=== PATIENT | male | born 1970 | race Caucasian/White ===

== ENCOUNTER 2016-12-03 13:49 | Inpatient (IN) | payer BC ==
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
[2016-12-03 14:31] LABS: % IMMATURE GRANULYOCYTES 0.4 % (0.0-1.1); ABSOLUTE IMMATURE GRANULOCYTES 0.05 10^3/uL (0.00-0.10); ADD DIFF? NO; ADD MORPH? NO; ADD SCAN? NO; ATYPICAL LYMPHOCYTE FLAG 0 (0-99); FRAGMENT RBC FLAG 0 (0-99); HEMATOCRIT 55.1 % (40.0-51.0); HEMOGLOBIN 18.4 g/dL (13.7-17.5); LEFT SHIFT FLG 0 (0-99); LIPEMIA HEMOLYSIS FLAG 80 (0-99); MEAN CELL HEMOGLOBIN 30.8 pg (27.9-34.1); MEAN CELL HEMOGLOBIN CONCENTR. 33.4 g/dL (32.4-36.7); MEAN CELL VOLUME 92.3 fL (81.5-99.8); MEAN PLATELET VOLUME 10.4 fL (8.7-11.7); PLATELET CLUMPS FLAG 0 (0-99); PLATELET COUNT 301 10^3/uL (150-400); RED BLOOD CELL COUNT 5.97 10^6/uL (4.40-6.38); RED CELL DISTRIBUTION WIDTH 14.1 % (11.5-15.2)
[2016-12-03 14:46] LABS: ANION GAP 13 mEq/L (8-16); CALCIUM 9.6 mg/dL (8.5-10.4); CARBON DIOXIDE 21 mEq/l (22-31); CHLORIDE 101 mEq/L (97-110); CREATININE 0.7 mg/dL (0.7-1.3); GLOMERULAR FILTRATION RATE > 60; GLUCOSE 88 mg/dL (70-100); POTASSIUM 4.6 mEq/L (3.5-5.2); SODIUM 135 mEq/L (134-144)
[2016-12-03 14:57] LABS: ALBUMIN 3.9 g/dL (3.5-5.0); BILIRUBIN-CONJUGATED 0.5 mg/dL (0.0-0.5); BILIRUBIN-UNCONJUGATED 0.5 mg/dL (0.0-1.1); TOTAL PROTEIN 7.5 g/dL (6.3-8.2)
[2016-12-03 15:13] LABS: INR 1.02 (0.83-1.16); PROTIME(PATIENT) 13.3 SEC (12.0-15.0)
[2016-12-03 15:47] LABS: APTT 29.6 SEC (23.0-38.0)
[2016-12-03] MEDS ORDERED: VANCOMYCIN HCL/NORMAL SALINE 250 ML IV ONE (16:36)
[2016-12-03] MEDS ORDERED: ONDANSETRON DISINTEGRATING 4 MG TAB PO PRN (17:51)
[2016-12-03] MEDS ORDERED: ONDANSETRON 4 MG/2 ML VIAL IVP PRN (17:51)
[2016-12-03] MEDS ORDERED: ACETAMINOPHEN 325 MG TAB PO PRN (17:51)
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
[2016-12-03] MEDS: NS IV SCH (20:01)
[2016-12-03] MEDS: DAPTOMYCIN IV SCH (20:01)
[2016-12-03] MEDS: oxyCODONE IR 5 MG TAB PO PRN (20:11)
[2016-12-04] MEDS: oxyCODONE IR 5 MG TAB PO PRN ×5 (01:28→23:14)
[2016-12-04 05:14] LABS: HEMATOCRIT 52.6 % (40.0-51.0); HEMOGLOBIN 17.3 g/dL (13.7-17.5); MEAN CELL HEMOGLOBIN 31.2 pg (27.9-34.1); MEAN CELL HEMOGLOBIN CONCENTR. 32.9 g/dL (32.4-36.7); MEAN CELL VOLUME 94.9 fL (81.5-99.8); RED BLOOD CELL COUNT 5.54 10^6/uL (4.40-6.38); RED CELL DISTRIBUTION WIDTH 14.3 % (11.5-15.2)
[2016-12-04 05:37] LABS: ALANINE AMINOTRANSFERASE 27 IU/L (21-72); ALBUMIN 2.9 g/dL (3.5-5.0); ALKALINE PHOSPHATASE 82 IU/L (38-126); ANION GAP 8 mEq/L (8-16); ASPARTATE AMINOTRANSFERASE 21 IU/L (17-59); BILIRUBIN,TOTAL 0.6 mg/dL (0.1-1.4); CALCIUM 8.8 mg/dL (8.5-10.4); CARBON DIOXIDE 25 mEq/l (22-31); CHLORIDE 100 mEq/L (97-110); CREATININE 0.7 mg/dL (0.7-1.3); GLOMERULAR FILTRATION RATE > 60; GLUCOSE 82 mg/dL (70-100); POTASSIUM 4.7 mEq/L (3.5-5.2); SODIUM 133 mEq/L (134-144); TOTAL PROTEIN 6.1 g/dL (6.3-8.2)
[2016-12-04] MEDS: DAPTOMYCIN IV SCH (07:59)
[2016-12-04] MEDS: NS IV SCH (07:59)
[2016-12-04] MEDS ORDERED: ENOXAPARIN 40 MG/0.4 ML SYR SC SCH (09:00)
--- NOTE | 2016-12-04 09:56 | WOCRNPDOC ---
WOCRN Advanced Assessment Note - Skin Integrity Problem, Advanced Assess Left Calf Dressing Type: Open to Air Exudate Amount: Minimal Exudate Characteristic(s): Serosanguinous Neida Wound Tissue: Erythema, Hot, Hemosiderin Staining, Xerotic Wound Bed Color: [place] Life Wound Bed Constitution: Smooth Tissue, Scab Wound Edges: Attached Peripheral Edema Location & Description: 2+ BLE Skin Integrity Problem Comment: Acute cellulitis of the left lower leg with swelling and skin breakdown. Bilateral legs with mild hemosiderin staining. Wounds are fissure-like along back of leg and as edema reduces they will likely close. Wound care will round again next week. Cece WADDELL in room.
--- NOTE | 2016-12-04 13:24 | HOSPPROG ---
Hospitalist Progress Note Assessment/Plan: Assessment: 46-year-old male presents with acute cellulitis in the setting of significant bilateral lower extremity edema Plan: 1. Cellulitis. Purulent, located on the posterior aspect of the left lower extremity, remains clinically on resolved from day prior, requiring ongoing IV antibiotics -Dr. Kwan discussed with Dr. Sarah last night, daptomycin was recommended given the patient's weight -continue daptomycin at this time -consulted with Infectious Disease, appreciate recommendations regarding type of therapy, duration of therapy, establishing with wound care as an outpatient -wound care consultation appreciated, currently open to air -continue to monitor CBC 2. Lower extremity edema. Chronic, no evidence of DVT on ultrasound, give IV Lasix and plan to transition to oral Lasix at discharge, to facilitate wound healing 3. Hyponatremia. Acute, most likely secondary to hypoperfusion in the setting of infection, continue to monitor 4. Morbid obesity. Increase patient's risk of worsening morbidity, BMI of 50 Diet. Regular diet Prophylaxis. High risk patient, Lovenox 40 Code. Full Disposition. Anticipated discharge uncertain this time, patient's cellulitis remains clinically on resolved, requiring ongoing reassessments and IV antibiotics. Subjective: ongoing purulence from LLE, no BM Objective: Vital Signs Temp Pulse Resp BP Pulse Ox 36.6 C 83 16 131/81 H 93 12/04/16 12:00 12/04/16 12:00 12/04/16 12:00 12/04/16 12:00 12/04/16 12:00 Microbiology 12/03/16 19:00 Gram Stain - Final Leg - Swab Laboratory Results 12/04/16 04:31 12/04/16 04:31 PT 13.3 SEC (12.0-15.0) 12/03/16 14:20 INR 1.02 (0.83-1.16) 12/03/16 14:20 - Physical Exam Constitutional: no apparent distress, not in pain, obese, No uncomfortable Cardiovascular: regular rate and rhythym, no murmur, rub, or gallop, edema (2+ bilat LE) Respiratory: no respiratory distress, no rales or rhonchi, clear to auscultation Gastrointestinal: normoactive bowel sounds, soft, non-tender abdomen, no palpable masses, distension (moderately) Skin: other (open ulcerations posterior aspect LLE w/ purulence, erythema, no blistering) Neurologic: AAOx3, sensation intact bilaterally, No asterixes (no tremor) Psychiatric: interacting appropriately, not anxious, not encephalopathic, thought process linear ICD10 Worksheet Patient Problems: Problems Problem Status Onset Left leg cellulitis Acute
[2016-12-04] MEDS: FUROSEMIDE 20 MG TAB PO SCH (13:40)
--- NOTE | 2016-12-04 16:40 | ASMTCMCOM ---
CM Note CM Note Notes: Pt is a 46 y/o man admitted w/ left leg celluitis. Pt is obese with a hx of ETOH. Pts last drink is on . CM met w/ pt for dispo planning. Pt will most likely d/c independently w/out any needs. Spoke w/ Sari, RN and pt will have ID consult today. CM available for any changes. Date Signed: 12/04/2016 04:39 PM Electronically Signed By:Nieves Reed
[2016-12-04] MEDS: ENOXAPARIN 40 MG/0.4 ML SYR SC SCH (20:31)
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
[2016-12-05] MEDS: oxyCODONE IR 5 MG TAB PO PRN ×2 (03:51→08:18)
[2016-12-05 05:17] VITALS: RESP 16
[2016-12-05 05:27] LABS: HEMATOCRIT 50.9 % (40.0-51.0); HEMOGLOBIN 17.2 g/dL (13.7-17.5); MEAN CELL HEMOGLOBIN 31.9 pg (27.9-34.1); MEAN CELL HEMOGLOBIN CONCENTR. 33.8 g/dL (32.4-36.7); MEAN CELL VOLUME 94.3 fL (81.5-99.8); RED BLOOD CELL COUNT 5.4 10^6/uL (4.40-6.38); RED CELL DISTRIBUTION WIDTH 14.3 % (11.5-15.2)
[2016-12-05 05:42] LABS: ALANINE AMINOTRANSFERASE 29 IU/L (21-72); ALKALINE PHOSPHATASE 69 IU/L (38-126); ANION GAP 7 mEq/L (8-16); ASPARTATE AMINOTRANSFERASE 18 IU/L (17-59); BILIRUBIN,TOTAL 0.7 mg/dL (0.1-1.4); CARBON DIOXIDE 26 mEq/l (22-31); CHLORIDE 98 mEq/L (97-110); CREATININE 0.7 mg/dL (0.7-1.3); GLOMERULAR FILTRATION RATE > 60; GLUCOSE 91 mg/dL (70-100); POTASSIUM 4.4 mEq/L (3.5-5.2); SODIUM 131 mEq/L (134-144); TOTAL PROTEIN 6.2 g/dL (6.3-8.2)
[2016-12-05 07:33] LABS: COLOR YELLOW; LEUKOCYTE ESTERASE,URINE NEGATIVE (NEGATIVE); NITRITE,URINE NEGATIVE (NEGATIVE)
[2016-12-05 08:06] VITALS: O2SAT 92
[2016-12-05] MEDS: ENOXAPARIN 40 MG/0.4 ML SYR SC SCH (08:19)
[2016-12-05] MEDS: FUROSEMIDE 20 MG TAB PO SCH (08:19)
[2016-12-05] MEDS ORDERED: NS IV SCH (09:00)
[2016-12-05] MEDS ORDERED: DAPTOMYCIN IV SCH (09:00)
[2016-12-05 11:54] VITALS: BP 127/89; PULSE 75; TEMP 97.8
--- NOTE | 2016-12-05 12:10 | PCMIDPN ---
Assessment/Plan: LLE cellulitis: Wound cultures showed group C/G Streptococcus and MSSA and Citrobacter. Patient improved clinically on coverage of strep and MSSA alone. Reviewed picture of left lower extremity which shows improvement. Patient desires discharge today --dc on Keflex 500mg QID --Continue elevation as much as possible --Follow-up in wound care. Patient to be called with follow-up appointment patient seen with Suly Chi NP Subjective: patient feeling well wants to go home expresses extreme satisfaction over care he received at [facility] Objective: Vital Signs Temp Pulse Resp BP Pulse Ox 36.6 C 75 16 127/89 H 92 12/05/16 11:53 12/05/16 11:53 12/05/16 11:53 12/05/16 11:53 12/05/16 11:53 Microbiology 12/03/16 19:00 Gram Stain - Final Leg - Swab Laboratory Results 12/05/16 05:14 12/05/16 05:14 12/04/16 12/05/16 12/06/16 05:59 05:59 05:59 Intake Total 1550 450 Output Total 1300 2500 Balance 250 -2050 - Physical Exam General Appearance: alert, no apparent distress Respiratory: No accessory muscle use Extremities: pedal edema, inflammation (Posterior left calf with purplish tinged erythema and skin breakdown, 2+ edema), other (Wrinkling of the lower extremity showing improved edema) Skin: No rash Neuro/Psych: alert, normal mood/affect, oriented x 3 - Time Spent With Patient Time Spent with Patient: greater than 35 minutes (Coordination of care with hospitalists, review of plans at discharge) Time Spent with Patient: Greater than 35 minutes spent on this patients care, greater than 50% of time spent counseling, educating, and coordinating care regarding the above mentioned plan. ICD10 Worksheet Patient Problems: Problems Problem Status Onset Left leg cellulitis Acute
--- NOTE | 2016-12-05 12:14 | HOSPPROG ---
Hospitalist Progress Note Assessment/Plan: Patient is a 38-year-old male with morbid obesity and history of alcohol use who presented the emergency room with left lower extremity swelling for several weeks. Today is my 1st encounter with the patient. Evaluated the patient with Dr. Teresa Francis. * left lower extremity cellulitis/MSSA Treated w Daptomycin Will go home on oral antibiotics * morbid obesity * venous insufficiency with with chronic venous stasis Doppler study was negative * alcohol use and abuse Cessation recommended * hyponatremia Suspect this is related to hypovolemia and alcohol use * plan. DC home with close follow up with Dr. Francis, he would like his hemoglobin A1c and lipid panel checked. This will be added onto his lab so when he sees his primary care provider this will be available Subjective: Robert is feeling well. Ready to be discharged Objective: Vital Signs Temp Pulse Resp BP Pulse Ox 36.6 C 75 16 127/89 H 92 12/05/16 11:53 12/05/16 11:53 12/05/16 11:53 12/05/16 11:53 12/05/16 11:53 Microbiology 12/03/16 19:00 Gram Stain - Final Leg - Swab Laboratory Results 12/05/16 05:14 12/05/16 05:14 12/04/16 12/05/16 12/06/16 05:59 05:59 05:59 Intake Total 1550 450 Output Total 1300 2500 Balance 250 -2050 PT 13.3 SEC (12.0-15.0) 12/03/16 14:20 INR 1.02 (0.83-1.16) 12/03/16 14:20 - Physical Exam Constitutional: not in pain, obese Eyes: PERRL Ears, Nose, Mouth, Throat: hearing normal Respiratory: no respiratory distress Skin: warm, other (Left lower extremity just really dressed with dressing in place. He had pictures from 8 evaluate. Appears to have some redness with chronic venous stasis) Musculoskeletal: generalized weakness Neurologic: AAOx3 Psychiatric: interacting appropriately, not anxious ICD10 Worksheet Patient Problems: Problems Problem Status Onset Left leg cellulitis Acute
--- NOTE | 2016-12-05 13:01 | GDS ---
[f rep st] DISCHARGE SUMMARY DISCHARGE DIAGNOSES: 1. Left lower extremity cellulitis/methicillin susceptible Staphylococcus aureus. 2. Morbid obesity. 3. Venous insufficiency with chronic venous stasis. 4. Alcohol use and abuse. 5. Hyponatremia. CONSULTATIONS: Teresa Francis MD. Briefly, the patient is a 46-year-old male with morbid obesity and alcohol abuse who presented to the emergency room with progressive lower extremity swelling for several weeks. He has had off and on lower extremity swelling. The patient was noted to have a left lower extremity cellulitis in the emergency room, and his wound culture grew out MSSA. He was treated with daptomycin. The plan is for him to be discharged home today. He will get close followup in the [facility]. HOSPITAL COURSE: 1. Left lower extremity cellulitis, MSSA: He was treated with daptomycin. He will be discharged on Keflex 500 mg q.i.d. for the next 7 days. Further follow up with Dr. Teresa Francis and with the Wound Clinic. 2. Morbid obesity. Impacting his health. Recommending weight loss. 3. Venous insufficiency with chronic venous stasis. His Doppler study was negative. 4. Alcohol use and abuse. Cessation has been recommended. 5. Hyponatremia. Suspect this is related to hypovolemia and alcohol use. DISCHARGE CONDITION: Stable. Blood pressure is 127/89, O2 saturation on room air 92%. Respiratory rate is 16, pulse is 75, temperature is 36.6 Celsius. MEDICATIONS AT DISCHARGE: Please see the EMR. DISCHARGE INSTRUCTIONS: 1. To elevate his leg 5 times a day above his heart. 2. To start his antibiotics tomorrow. 3. Stop alcohol use. 4. Follow up Dr. Mahsa Nieto, she is a primary care doctor. 5. [facility] Care Clinic will call him in regard to followup. Also Dr. Francis to follow up with him in addition. His prescription was sent here to [facility] in the hospital. 6. Hemoglobin A1c and lipid panel are pending. Greater than 30 minutes discharging and coordinating care. /[id number]/MODL MTDD
[2016-12-05 13:09] LABS: CHOLESTEROL 114 mg/dL (140-200); CHOLESTEROL/HDL RATIO 4.96 RATIO (1.00-4.97); HIGH DENSITY LIPOPROTEIN 23 mg/dL (40-65); LDL/HDL RATIO 3.04 RATIO (1.00-3.64); LOW DENSITY LIPOPROTEIN 70 mg/dL (70-100); NON-HIGH DENSITY LIPOPROTEIN 91 mg/dL (90-129); TRIGLYCERIDE 109 mg/dL (40-150); VERY LOW DENSITY LIPOPROTEINS 21 mg/dL (8-25)
[2016-12-05 13:45] LABS: HEMOGLOBIN A1C 5.7 % (4.0-6.0)
--- NOTE | 2016-12-09 17:06 | ASDISCHSUM ---
Discharge Information Plan Status:Home with Home Health Medically Cleared to Leave:12/05/2016 Discharge Date:12/05/2016 01:26 PM CM D/C Disposition:Home, Routine, Self-Care ADT D/C Disposition:Home, Routine, Self-Care Projected Discharge Date:12/05/2016 12:00 AM Transportation at D/C: Discharge Delay Reason: Follow-Up Date:12/05/2016 12:00 AM Discharge Slot: Final Diagnosis: Placement Information Patient Contact Information Contact Name:CHANNING Relationship: Address: Home Phone: Work Phone: City: Alternate Phone: State/[place] Code: Email: Financial Information Financial Class:HMO and PPO Plans Primary Plan Desc:[employer] OUT OF STATE PPO Primary Plan Number:[id number] Secondary Plan Desc: Secondary Plan Number: Assessment Information [facility] Progress Note CM Note CM Note Notes: Pt is a 46 y/o man admitted w/ left leg celluitis. Pt is obese with a hx of ETOH. Pts last drink is on . CM met w/ pt for dispo planning. Pt will most likely d/c independently w/out any needs. Spoke w/ NADIRA Guo and pt will have ID consult today. CM available for any changes. Date Signed: 12/04/2016 04:39 PM Electronically Signed By:Nieves Reed Intervention Information
== END 2016-12-05 13:26 | disposition home or self-care (01) | DRG 603 ==
LOC: OBSVTOIN 17:51 → F3E 18:24
PROVIDERS: ADMIT Internal Medicine; ATTEND Internal Medicine Pulmonary Disease
DX: L03.116 Cellulitis of left lower limb (principal); B95.61 Methicillin susceptible Staphylococcus aureus infection as the cause of diseases classified elsewhere; E66.01 Morbid (severe) obesity due to excess calories; Z68.42 Body mass index [BMI] 45.0-49.9, adult; I87.392 Chronic venous hypertension (idiopathic) with other complications of left lower extremity; F10.10 Alcohol abuse, uncomplicated; E87.1 Hypo-osmolality and hyponatremia; F17.220 Nicotine dependence, chewing tobacco, uncomplicated
CPT/HCPCS: 96365; 97161-GP; J0878; J1650; J3370

== ENCOUNTER 2018-06-18 08:27 | Inpatient (IN) | payer BC ==
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
[2018-06-18] MEDS ORDERED: ALBUTEROL 3 ML DEYVIAL IH ONE (08:51)
[2018-06-18] MEDS ORDERED: NS 1,000 ML IV ONE (08:51)
[2018-06-18] MEDS ORDERED: methylPREDNISolone SOD SUCC 125 MG/2 ML VIAL IVP ONE (08:51)
[2018-06-18] MEDS ORDERED: IPRATROPIUM/ALBUTEROL 3 ML DEYVIAL IH ONE (08:51)
--- NOTE | 2018-06-18 09:45 | CPEKG ---
Test Reason : OPEN Blood Pressure : / mmHG Vent. Rate : 078 BPM Atrial Rate : 078 BPM P-R Int : 149 ms QRS Dur : 094 ms QT Int : 388 ms P-R-T Axes : 017 -30 006 degrees QTc Int : 442 ms Sinus rhythm Left axis deviation Borderline T wave abnormalities Confirmed by Emerson Juarez ([id number]) on 06/18/2018 9:45:35 AM Referred By: EMERSON JUAREZ Confirmed By:Emerson Juarez
[2018-06-18 10:25] LABS: PLATELET COUNT 220 10^3/uL (150-400)
[2018-06-18 11:22] LABS: INR 1.05 (0.83-1.16); PROTIME(PATIENT) 13.3 SEC (12.0-15.0)
[2018-06-18] MEDS ORDERED: ONDANSETRON DISINTEGRATING 4 MG TAB PO PRN (12:08)
[2018-06-18] MEDS ORDERED: ONDANSETRON 4 MG/2 ML VIAL IVP PRN (12:08)
[2018-06-18] MEDS ORDERED: ALBUTEROL 3 ML DEYVIAL IH PRN (12:08)
--- NOTE | 2018-06-18 15:31 | PDGENHP ---
History and Physical - Chief Complaint SOB - History of Present Illness Seth Harper is a 47 yo M with a PMHx of cellulitis, alcohol abuse, morbid obesity who presents to [facility] for SOB. He reports that symptoms of dyspnea with exertion, chest congestion, and productive cough started 3 days ago and have been getting worse since. Cough is productive of yellow sputum. He denies any hemoptysis. He denies any fevers, chills, chest pain, palpitations, abdominal pain, d/c, n/v. He presented to urgent care center today and was sent to ED. In the ED, initial 02 sat was 79% on RA, improving to 94% on 4L NC. History Information - Allergies/Home Medication List Allergies/Adverse Reactions: No Known Allergies Allergy (Verified 06/18/18 09:43) Home Medications: Herbals/Supplements -Info Only 1 ea PO DAILY 06/18/18 [Last Taken Unknown] Ibuprofen [Motrin (*)] 200 mg PO DAILY PRN 06/18/18 [Last Taken Unknown] Multivitamins [Multivitamin (*)] 1 each PO DAILY 06/18/18 [Last Taken Unknown] I have personally reviewed and updated: family history, medical history, social history, surgical history - Past Medical History Additional medical history: cellulitis - Surgical History Reports: no pertinent surgical hx - Family History Positive for: non-pertinent - Social History Smoking Status: Never smoked Alcohol Use: Heavy Review of Systems Review of Systems: ROS: 10pt was reviewed & negative except for what was stated in HPI & below Physical Exam Physical Exam: Temp Pulse Resp BP Pulse Ox 36.7 C 95 20 170/118 H 94 06/18/18 14:52 06/18/18 14:52 06/18/18 14:52 06/18/18 14:52 06/18/18 14:52 O2 (L/minute) 6 Constitutional: chronically ill appearing, obese Eyes: PERRL Ears, Nose, Mouth, Throat: moist mucous membranes Cardiovascular: regular rate and rhythym Respiratory: expiratory wheeze Gastrointestinal: soft, non-tender abdomen Skin: warm Musculoskeletal: full muscle strength Neurologic: AAOx3 Psychiatric: flat affect Lab Data & Imaging Review 06/18/18 09:50 06/18/18 09:50 WBC 7.67 10^3/uL (3.80-9.50) 06/18/18 09:50 RBC 6.65 10^6/uL (4.40-6.38) H 06/18/18 09:50 Hgb 20.5 g/dL (13.7-17.5) H* 06/18/18 09:50 Hct 61.9 % (40.0-51.0) H* 06/18/18 09:50 MCV 93.1 fL (81.5-99.8) 06/18/18 09:50 MCH 30.8 pg (27.9-34.1) 06/18/18 09:50 MCHC 33.1 g/dL (32.4-36.7) 06/18/18 09:50 RDW 17.6 % (11.5-15.2) H 06/18/18 09:50 Plt Count 220 10^3/uL (150-400) 06/18/18 09:50 MPV 10.5 fL (8.7-11.7) 06/18/18 09:50 Neut % (Auto) 56.6 % (39.3-74.2) 06/18/18 09:50 Lymph % (Auto) 23.6 % (15.0-45.0) 06/18/18 09:50 [place] % (Auto) 17.3 % (4.5-13.0) H 06/18/18 09:50 Eos % (Auto) 1.2 % (0.6-7.6) 06/18/18 09:50 Baso % (Auto) 1.0 % (0.3-1.7) 06/18/18 09:50 Nucleat RBC Rel Count 0.0 % (0.0-0.2) 06/18/18 09:50 Absolute Neuts (auto) 4.34 10^3/uL (1.70-6.50) 06/18/18 09:50 Absolute Lymphs (auto) 1.81 10^3/uL (1.00-3.00) 06/18/18 09:50 Absolute Monos (auto) 1.33 10^3/uL (0.30-0.80) H 06/18/18 09:50 Absolute Eos (auto) 0.09 10^3/uL (0.03-0.40) 06/18/18 09:50 Absolute Basos (auto) 0.08 10^3/uL (0.02-0.10) 06/18/18 09:50 Absolute Nucleated RBC 0.00 10^3/uL (0-0.01) 06/18/18 09:50 Immature Gran % 0.3 % (0.0-1.1) 06/18/18 09:50 Immature Gran # 0.02 10^3/uL (0.00-0.10) 06/18/18 09:50 PT 13.3 SEC (12.0-15.0) 06/18/18 10:50 INR 1.05 (0.83-1.16) 06/18/18 10:50 APTT 29.6 SEC (23.0-38.0) 06/18/18 10:50 D-Dimer 0.41 ug/mLFEU (0.00-0.50) 06/18/18 10:50 VBG Lactic Acid 1.0 mmol/L (0.7-2.1) 06/18/18 09:25 Sodium 137 mEq/L (135-145) 06/18/18 09:50 Potassium 4.6 mEq/L (3.5-5.2) 06/18/18 09:50 Chloride 102 mEq/L (97-110) 06/18/18 09:50 Carbon Dioxide 23 mEq/l (22-31) 06/18/18 09:50 Anion Gap 12 mEq/L (6-14) 06/18/18 09:50 BUN 21 mg/dL (7-23) 06/18/18 09:50 Creatinine 0.6 mg/dL (0.7-1.3) L 06/18/18 09:50 Estimated GFR > 60 06/18/18 09:50 Glucose 89 mg/dL (70-100) 06/18/18 09:50 Calcium 8.7 mg/dL (8.5-10.4) 06/18/18 09:50 Total Bilirubin 0.8 mg/dL (0.1-1.4) 06/18/18 09:50 Nasal Influenza A PCR NEGATIVE FOR FLU A (NEGATIVE) 06/18/18 10:00 Nasal Influenza B PCR NEGATIVE FOR FLU B (NEGATIVE) 06/18/18 10:00 Assessment & Plan Assessment: Acute Hypoxic Respiratory Failure - Presenting with 02 sat 79% on RA, improved to 94% on 4L - With significant expiratory wheezes on admission - CXR on admission showing hazy increased markings involving mid to lower lungs with prominent perihilar interstitial markings and some peribronchial cuffing, consider b/l pneumonitis or early PNA vs. less likely fluid overload - S/p 125 mg IVP Solumedrol in ED, will continue 40 mg PO Prednisone for total 5 day course - Flu negative on admission, Respiratory PCR ordered - Will initiate Levaquin 750 mg IV qd for now - Wean 02 as tolerated URI - CXR as above showing bronchitis as well as pneumonitis vs. PNA - Management as above - Ordered PRN and scheduled nebs, antitussive PRN Elevated Hgb - Appears Hgb has been elevated in the past - Continue to monitor Alcohol Abuse - Reports drinking handle of [employer] weekly - No hx of withdrawal per patient - Will monitor for s/s of withdrawal, initiate CIWA if needed - Counseled on cessation Morbid Obesity - BMI 51.7 on admission - Counseled on lifestyle changes FEN: IVF PRN, Regular DVT PPx: Lovenox Code: FULL Dispo: Admit to Medicine
[2018-06-18] MEDS ORDERED: guaiFENesin/CODEINE PHOS 10 ML UDCUP PO PRN (15:36)
[2018-06-18] MEDS: IPRATROPIUM/ALBUTEROL 3 ML DEYVIAL IH SCH ×2 (16:56→20:20)
--- NOTE | 2018-06-18 17:01 | ASMTCMCOM ---
CM Note CM Note Notes: Pt was admtited with SOB, congestion. He lives alone in [place]. He has a hx of etoh abuse and morbid obesity. He may benefit from resources for his etoh use. He is currently on 6L O2 and PT/OT evals are pending. CM will follow for any d/c needs. D/C plan: TBD Date Signed: 06/18/2018 05:01 PM Electronically Signed By:CLAUDIA Huertas
[2018-06-18] MEDS: oxyCODONE IR 5 MG TAB PO PRN ×2 (19:38→21:46)
[2018-06-18] MEDS: ACETAMINOPHEN 325 MG TAB PO PRN ×2 (19:38→21:46)
[2018-06-18] MEDS: ENOXAPARIN 60 MG/0.6 ML SYR SC SCH (21:09)
[2018-06-18] MEDS ORDERED: hydrALAZINE 10 MG TAB PO ONE (21:50)
[2018-06-19] MEDS: ACETAMINOPHEN 325 MG TAB PO PRN ×4 (03:56→22:36)
[2018-06-19] MEDS: oxyCODONE IR 5 MG TAB PO PRN ×4 (03:57→22:34)
[2018-06-19 04:37] LABS: PLATELET COUNT 187 10^3/uL (150-400)
[2018-06-19] MEDS: IPRATROPIUM/ALBUTEROL 3 ML DEYVIAL IH SCH ×4 (05:08→21:25)
[2018-06-19] MEDS: predniSONE 20 MG TAB PO SCH (10:09)
[2018-06-19] MEDS: ENOXAPARIN 60 MG/0.6 ML SYR SC SCH ×2 (10:09→20:52)
[2018-06-19] MEDS: LISINOPRIL 20 MG TAB PO SCH (10:09)
[2018-06-19] MEDS ORDERED: CEPACOL LOZENGE PO PRN (11:24)
[2018-06-19] MEDS: GUAIFENESIN/DM 10 ML UDCUP PO PRN ×3 (12:43→22:34)
--- NOTE | 2018-06-19 14:11 | HOSPPROG ---
Hospitalist Progress Note Assessment/Plan: Acute Hypoxic Respiratory Failure - Presenting with 02 sat 79% on RA, improved to 94% on 4L - With significant expiratory wheezes on admission - CXR on admission showing hazy increased markings involving mid to lower lungs with prominent perihilar interstitial markings and some peribronchial cuffing, consider b/l pneumonitis or early PNA vs. less likely fluid overload - S/p 125 mg IVP Solumedrol in ED, will continue 40 mg PO Prednisone for total 5 day course - Flu negative on admission, Respiratory PCR positive for human metapneumovirus - Will continue Levaquin 750 mg IV qd for now (Day 2) - Wean 02 as tolerated URI - CXR as above showing bronchitis as well as pneumonitis vs. PNA - Management as above - Ordered PRN and scheduled nebs, antitussive PRN Elevated Hgb - Appears Hgb has been elevated in the past - Continue to monitor, decreased 20.5->19.2 this AM Alcohol Abuse - Reports drinking handle of [employer] weekly - No hx of withdrawal per patient - Will monitor for s/s of withdrawal, initiate CIWA if needed - Counseled on cessation Morbid Obesity - BMI 51.7 on admission - Counseled on lifestyle changes FEN: IVF PRN, Regular DVT PPx: Lovenox Code: FULL Dispo: Pending clinical course Subjective: Patient reports continued cough this AM, mildly improved SOB Objective: Vital Signs Temp Pulse Resp BP Pulse Ox 36.6 C 73 12 140/91 H 92 06/19/18 12:08 06/19/18 12:08 06/19/18 12:08 06/19/18 12:08 06/19/18 12:08 Microbiology 06/18/18 16:45 Respiratory Panel (PCR) - Final Nasal, Sinus - Swab Human Metapneumovirus Detected Laboratory Results 06/19/18 04:20 06/18/18 06/19/18 06/20/18 05:59 05:59 05:59 Intake Total 2200 Balance 2200 PT 13.3 SEC (12.0-15.0) 06/18/18 10:50 INR 1.05 (0.83-1.16) 06/18/18 10:50 - Physical Exam Constitutional: obese Eyes: PERRL Ears, Nose, Mouth, Throat: moist mucous membranes Cardiovascular: regular rate and rhythym, edema (b/l 3+ non-pitting edema ) Respiratory: no respiratory distress, reduced air movement, expiratory wheeze Gastrointestinal: soft, non-tender abdomen Skin: warm Musculoskeletal: full muscle strength Neurologic: AAOx3 Psychiatric: interacting appropriately ICD10 Worksheet Patient Problems: Problems Problem Status Onset Acute bronchitis Acute Hypoxia Acute Left leg cellulitis Acute
--- NOTE | 2018-06-19 15:09 | PDMN ---
Medical Necessity Medical necessity: MCG: M282 cPNA: 47yo M presents with SOB X 3 days also with congestion, productive cough, dyspnea on exertion, sig. expiratory wheezing , presents with initial sat of 79% RA, presenting on 4L mid 90"s. - drops with ambulation, CXR shows hazy increased marking involving mid to lower lungs with prominent perhilar interstitial marking and some peribronchial cuffing, consider bilat. pneumonitis or early PNA less likely fluid overload. PMHx: cellulitis, obesity- BMI 51.7 on admission. , ETOH abuse, status changed to INPT 06/19/18 for ongoing med nec care- further monitoring , eval and tx needed IVF, nebs, further labs ( Hgb 20.5, 19.2) , O2, monitoring s/s of W/ d.
--- NOTE | 2018-06-19 17:03 | ASMTCMCOM ---
CM Note CM Note Notes: Reviewed therapy's recommendations, cleared for d/c home. Patient remains medically ill, d/c date unclear at this time. Anticipate patient will be able to d/c home independently when medically stable. CM will continue to follow for any further needs. Plan: Likely Independent Date Signed: 06/19/2018 05:02 PM Electronically Signed By:Estrella Cason RN
[2018-06-19] MEDS ORDERED: TETRAHYDROZOLINE 0.05% 15 ML OPHT.BTL EACHEYE PRN (20:27)
[2018-06-20] MEDS: GUAIFENESIN/DM 10 ML UDCUP PO PRN ×5 (02:56→22:00)
[2018-06-20] MEDS: ACETAMINOPHEN 325 MG TAB PO PRN ×5 (02:56→22:00)
[2018-06-20] MEDS: oxyCODONE IR 5 MG TAB PO PRN ×5 (02:56→22:00)
[2018-06-20] MEDS: IPRATROPIUM/ALBUTEROL 3 ML DEYVIAL IH SCH ×4 (05:25→20:23)
[2018-06-20] MEDS: LISINOPRIL 20 MG TAB PO SCH (09:08)
[2018-06-20] MEDS: predniSONE 20 MG TAB PO SCH (09:08)
[2018-06-20] MEDS: ENOXAPARIN 60 MG/0.6 ML SYR SC SCH ×2 (09:09→21:58)
--- NOTE | 2018-06-20 12:19 | HOSPPROG ---
Hospitalist Progress Note Assessment/Plan: Acute Hypoxic Respiratory Failure - Presented with 02 sat 79% on RA, improved to 94% on 4L - With significant expiratory wheezes on admission - CXR on admission showing hazy increased markings involving mid to lower lungs with prominent perihilar interstitial markings and some peribronchial cuffing, consider b/l pneumonitis or early PNA vs. less likely fluid overload - S/p 125 mg IVP Solumedrol in ED, will continue 40 mg PO Prednisone for total 5 day course (day 3) - Flu negative on admission, Respiratory PCR positive for human metapneumovirus - Will continue Levaquin 750 mg IV qd for now (Day 3/5) - Wean 02 as tolerated, currently on 5L URI - CXR as above showing bronchitis as well as pneumonitis vs. PNA - Management as above - Ordered PRN and scheduled nebs, antitussive PRN Elevated Hgb - Appears Hgb has been elevated in the past - Continue to monitor, decreased 20.5->19.2 Alcohol Abuse - Reports drinking handle of [employer] weekly - No hx of withdrawal per patient - Will monitor for s/s of withdrawal, initiate CIWA if needed - Counseled on cessation Morbid Obesity - BMI 51.7 on admission - Counseled on lifestyle changes FEN: IVF PRN, Regular DVT PPx: Lovenox Code: FULL Dispo: Pending clinical course, likely dispo tomorrow with home 02 Subjective: Patient reports able to bring up mucus this morning Objective: Vital Signs Temp Pulse Resp BP Pulse Ox 36.4 C 74 18 140/93 H 91 L 06/20/18 11:10 06/20/18 11:10 06/20/18 11:10 06/20/18 11:10 06/20/18 11:10 06/19/18 06/20/18 06/21/18 05:59 05:59 05:59 Intake Total 3000 Balance 3000 PT 13.3 SEC (12.0-15.0) 06/18/18 10:50 INR 1.05 (0.83-1.16) 06/18/18 10:50 - Physical Exam Constitutional: obese Eyes: PERRL Ears, Nose, Mouth, Throat: moist mucous membranes Cardiovascular: regular rate and rhythym, edema Respiratory: expiratory wheeze Gastrointestinal: soft, non-tender abdomen Skin: warm Musculoskeletal: full muscle strength Neurologic: AAOx3 Psychiatric: interacting appropriately ICD10 Worksheet Patient Problems: Problems Problem Status Onset Acute bronchitis Acute Hypoxia Acute Left leg cellulitis Acute
--- NOTE | 2018-06-20 16:57 | ASMTCMCOM ---
CM Note CM Note Notes: Pt discussed in rounds. Pt requiring Oxygen still and will need to discharge home on O2. RN Luz to contact RT to arrange home O2. PLAN: Likely Discharge Home independently tomorrow. Date Signed: 06/20/2018 04:57 PM Electronically Signed By:Lexus Mena
[2018-06-20] MEDS ORDERED: SODIUM CL NASAL 45 ML BTL EACHNARE PRN (21:39)
[2018-06-21] MEDS: GUAIFENESIN/DM 10 ML UDCUP PO PRN ×4 (01:59→14:50)
[2018-06-21] MEDS: oxyCODONE IR 5 MG TAB PO PRN ×3 (02:00→14:50)
[2018-06-21] MEDS: ACETAMINOPHEN 325 MG TAB PO PRN ×3 (02:00→14:49)
[2018-06-21] MEDS: IPRATROPIUM/ALBUTEROL 3 ML DEYVIAL IH SCH ×2 (05:52→10:34)
[2018-06-21] MEDS: LISINOPRIL 20 MG TAB PO SCH (08:53)
[2018-06-21] MEDS: predniSONE 20 MG TAB PO SCH (08:53)
[2018-06-21 08:54] VITALS: BP 126/93
[2018-06-21] MEDS: ENOXAPARIN 60 MG/0.6 ML SYR SC SCH (11:17)
--- NOTE | 2018-06-21 11:29 | PDHOMEO2F ---
Home Oxygen Face to Face Home Orders: I certify that a physician or a nurse practitioner or physician's assistant golf professional has had a [id number] encounter with this patient on the date of this order due to the diagnosis listed, which relates to the primary reason the patient requires home oxygen. Alternative treatments have been tried, or considered, and deemed ineffective. It is anticipated that supplemental oxygen will result in improvement with treatment. Home oxygen qualifying diagnosis: Pneumonia, Human Metapneumovirus Home oxygen secondary diagnosis: Obesity Hypoventilation Syndrome SpO2 on room air (%): 79 Frequency of home oxygen needed: continuous Home oxygen liters per minute: 5 Home oxygen delivery device: nasal cannula Concentrator: Yes E-tanks for mobility and back up: Yes If ordering portable O2, is the patient mobile in the home?: Yes I certify that, based on these findings, the home oxygen is medically necessary for this patient for the following length of time. Length of time home oxygen needed: 99 years
[2018-06-21] MEDS ORDERED: ALBUTEROL 60 PUFFS/8 GM MDI IH PRN (11:32)
--- NOTE | 2018-06-21 14:45 | PDDCSUM ---
Discharge Summary Discharge Summary: Date of Admission: 06/18/2018 Date of Discharge: 06/21/2018 Consults: N/A Procedures: CXR Followup: PCP Hospital Course Problem List: Acute Hypoxic Respiratory Failure - Presented with 02 sat 79% on RA, improved to 94% on 5L - With significant expiratory wheezes on admission - CXR on admission showing hazy increased markings involving mid to lower lungs with prominent perihilar interstitial markings and some peribronchial cuffing, consider b/l pneumonitis or early PNA vs. less likely fluid overload - S/p 125 mg IVP Solumedrol in ED, will continue 40 mg PO Prednisone for total 5 day course (day 3) - Flu negative on admission, Respiratory PCR positive for human metapneumovirus - Will continue Levaquin 750 mg qd for now (Day 35) - Wean 02 as tolerated, currently on 5L, ordered home oxygen upon discharge URI - CXR as above showing bronchitis as well as pneumonitis vs. PNA, resp PCR + for human metapneumovirus - Management as above - Ordered PRN and scheduled nebs, antitussive PRN Elevated Hgb - Appears Hgb has been elevated in the past - Continue to monitor, decreased 20.5->19.2 Alcohol Abuse - Reports drinking handle of [employer] weekly - No hx of withdrawal per patient - Monitored for s/s of withdrawal, CIWA not initiated - Counseled on cessation Morbid Obesity - BMI 51.7 on admission - Counseled on lifestyle changes LE Cellulitis - Patient with chronic venous stasis changes, cut himself on juan - Some clear fluid coming from wound - Will rx Keflex for 7 day course after completing Levaquin - Rx Bacitracin and recommended covering with bandage to encourage healing Time spent on discharge was >35 minutes with >50% of time spent on patient education and counseling.
[2018-06-21] MEDS ORDERED: BACITRACIN ZINC 0.5 OZ OINTTUBE TP SCH (16:00)
[2018-06-21] MEDS ORDERED: CEPHALEXIN 500 MG CAP PO SCH (18:00)
== END 2018-06-21 16:24 | disposition home or self-care (01) | DRG 193 ==
LOC: INTOOBSV 11:13 → F1N 14:42 → OBSVTOIN 06-19 15:00
PROVIDERS: ADMIT Internal Medicine; ATTEND Internal Medicine
DX: J12.3 Human metapneumovirus pneumonia (principal); J40 Bronchitis, not specified as acute or chronic; J96.01 Acute respiratory failure with hypoxia; E66.01 Morbid (severe) obesity due to excess calories; Z68.43 Body mass index [BMI] 50.0-59.9, adult; L03.116 Cellulitis of left lower limb; I87.8 Other specified disorders of veins; F10.10 Alcohol abuse, uncomplicated
CPT/HCPCS: 96374; 97161-GP; 97165-GO; G0378; J1650; J1956; J2930; J7512; J7613